=== PATIENT | female | born 1990 | race Caucasian/White ===

== ENCOUNTER 2016-08-11 05:44 | Emergency (ER) | payer OTHER ==
[2016-08-11] MEDS ORDERED: GABA300C5 PO (06:06)
[2016-08-11] MEDS ORDERED: ZOLO25TA PO (06:06)
[2016-08-11 06:07] VITALS: BP 116/68; PULSE 99; RESP 17; TEMP 98.5; O2SAT 97
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
[2016-08-11] MEDS ORDERED: ACETAMINOPHEN 325 MG TAB PO ONE (06:15)
== END 2016-08-11 06:43 ==
LOC: NEPD 05:44
DX: Z02.89 Encounter for other administrative examinations (principal); S00.83XA Contusion of other part of head, initial encounter; S00.10XA Contusion of unspecified eyelid and periocular area, initial encounter; S00.531A Contusion of lip, initial encounter; S00.431A Contusion of right ear, initial encounter; Z86.59 Personal history of other mental and behavioral disorders; X58.XXXA Exposure to other specified factors, initial encounter
CPT/HCPCS: 99282